=== PATIENT | male | born 1950 | race Caucasian/White ===

== ENCOUNTER → 2016-07-07 | Outpatient (CLI) | payer MEDICARE, OTHER | END | disposition home or self-care (01) | LOC: RAD.S 07-06 14:58 | DX: K21.9 Gastro-esophageal reflux disease without esophagitis (principal); R11.0 Nausea; I47.9 Paroxysmal tachycardia, unspecified ==

== ENCOUNTER → 2016-07-09 | Outpatient (CLI) | payer MEDICARE, OTHER ==
--- NOTE | ~2016-07-09 | ECH ---
Transthoracic Echocardiography Report (TTE) Demographics Patient Name HALEIGH GASCA Date of Study 07/09/2016 Patient Number [id number] Visit Number [id number] Date of 1950 Room Number Accession Number [id number] Gender Male Age 65 year(s) Referring Junaid Oleary MD Count Room Clerk Nay White Physician RDCS Physician Interpreting Libia Duarte MD Electrophysiology Technologist Physician Supervising Ordering Physician Junaid Oleary MD, MD/P Nurse Stress Administrative Volunteer Conclusions Summary Technically fair exam. The estimated left ventricular ejection fraction is 60%. The aortic root appears mildly dilated. The maximum diameter measures 3.9 cm. No significant valvular abnormalities. Procedure Type of Study TTE procedure:Echo Complete SF. Procedure Date Date: 07/09/2016 Start: 09:38 AM Technical Quality: Fair due to body habitus. Indications:Coronary artery disease and PSVT. Height: 72 inches Weight: 280 pounds BSA: 2.46 m Rhythm: NSR HR: 64 bpm BP: 138/90 mmHg M-Mode/2D Measurements LV Diastolic Dimension: 4.55 cm LV Systolic Dimension: 2.48 cm LV Septum Diastolic: 0.83 cm LV PW Diastolic: 0.86 cm AO Root Dimension: 3.89 cm Cardiac Output: 6.99 l/min LA Dimension: 4.12 cm Cardiac Index: 2.84 l/min*m RV Diastolic Dimension: 4.25 cm LA volume index: 34 ml/m LVOT: 2.27 cm LVOT VTI: 27.01 cm RV Base: 2.9 cm LV Stroke volume: 109.26 ml RV Mid: 2.5 cm LV Stroke volume index: 44.41 ml/m TAPSE: 3.2 cm TDI-S': 12 cm/s Doppler Measurements AV Peak Velocity: 1.3 m/s MV Peak E-Wave: 0.81 m/s AV Peak Gradient: 6.76 mmHg MV Peak A-Wave: 0.6 m/s AV Mean Gradient: 4.13 mmHg MV E/A Ratio: 1.34 LVOT Peak Velocity: 0.99 m/s MV P1/2t: 61.9 msec AV Area (Continuity):3.43 cm MV Deceleration Time: 203.1 msec MV Area (PHT): 3.55 cm PV Peak Velocity: 1 m/s E' Septal Velocity: 0.05 m/s PV Peak Gradient: 3.99 mmHg E' Lateral Velocity: 0.12 m/s A' Septal Velocity: 0.1 m/s A' Lateral Velocity: 0.1 m/s RA Area: 12.59 cm Findings Left Ventricle Normal left ventricle size and function. Diastolic assessment reveals normal relaxation. Right Ventricle Normal right ventricle structure and function. Left Atrium Normal left atrial size. Right Atrium Normal right atrial size. Mitral Valve Normal mitral valve structure and function. No mitral regurgitation by color Doppler. Aortic Valve The aortic valve was not well imaged. Tricuspid Valve Normal tricuspid valve structure and function. Trivial tricuspid regurgitation by color Doppler. Insufficient jet to calculate pulmonary pressures. Pulmonic Valve The pulmonic valve is not well visualized. Trivial pulmonic valve regurgitation by color Doppler. Pericardial Effusion No evidence of pericardial effusion. Miscellaneous The aortic root appears mildly dilated. The maximum diameter measures 3.9 cm. Pleural Effusion No evidence of pleural effusion. Signature
--- NOTE | ~2016-07-09 | CST ---
Cardiac Perfusion Imaging Demographics Patient Name CAMPOS Restrepo Gender Male Patient Number [id number] Race Visit Number [id number] Ethnicity [employer] ID Room Number Accession Number [id number] Height 72 inches Date of 1950 Weight 280 pounds Age 65 year(s) BSA 2.46 m Referring Physician Junaid Oleary MD BMI 37.97 kg/m Interpreting Physician [place] Date of study 07/09/2016 Radiology Vazquez Restrepo MD Supervising MD/MLP Junaid Oleary MD NM Technologist Linda Bro Ordering Physician Junaid Oleary MD Stress Mariann Hernandez aviation safety technician Stress ECG Reading Junaid Oleary MD Nurse Yeimi Kate Physician The procedure was explained in detail to the patient. Risks, complications and alternative treatments were reviewed. Written consent was obtained. Medications Reviewed with Patient prior to Procedure. Procedure Procedure Type: Nuclear Stress Test:Pharmacological, Lexiscan, Cardiac Study SF Procedure Start time: 07/09/2016 09:00 Indications: Paroxysmal Supraventricular Tachycardia, Hyperlipidemia, Hypertension, Tobacco use-prior, Diabetes, Family history of coronary artery disease and Chest tightness. Risk Factors The patient risk factors include:obesity, former tobacco use, hypercholesterolemia, hypertension, family history of premature CAD, insulin treated diabetes mellitus, dyslipidemia and ( years not smokin). Conclusions Summary Perfusion Images: The overall quality of the study is good. Left ventricular cavity is noted to be normal on the stress and rest studies. There is no evidence of abnormal lung activity. The right ventricle is not visualized and cannot be assessed. Stress SPECT images demonstrate homogenous tracer distribution throughout the myocardium. Rest SPECT images demonstrate homogenous tracer distribution throughout the myocardium. Gated SPECT imaging reveals normal myocardial thickening and wall motion. The left ventricular ejection fraction was calculated to be 64%. Impression 1. Normal myocardial perfusion. 2. Normal left ventricular systolic function with an ejection fraction of 64 %. Stress Protocols Resting ECG Normal sinus rhythm. Resting HR:62 bpm Resting BP:136/80 mmHg Pre-stress physical exam: Normal Stress Protocol:Pharmacologic Predicted HR: 155 bpm Test duration: 06:00 min Reason for termination:Infusion complete ECG Findings No ECG changes suggestive of ischemia. Symptoms chest tightness due to lexiscan pharmacologic agent Stress Interpretation ECG portion of stress test is negative for ischemia by diagnostic criteria. Imaging Results Summed scores - Summed stress score: 0 - Summed rest score: 3 - Summed difference score: -3 Stress ejection Ejection fraction:65 % EDV :136 ml ESV :48 ml Stroke volume :88 ml LV mass :153 gr Imaging Protocols Rest Stress Isotope:Tc99m Myoview IV Isotope: Tc99m Myoview IV Isotope dose:10.7 mCi Isotope dose:32.1 mCi Date:07/09/2016 08:00 Date:07/09/2016 09:15 Technique: SPECT Technique: Gated Supine SPECT Supine Scan Time:45-60 minutes post Scan Time:45-60 minutes post injection injection Procedure Medications - Regadenoson (Lexiscan) 0.4 mg IV over 10-15 sec. I.V. 0.4 mg. Medications administered per verbal order and read back to physician prior to administration. Medical History Admission Data Admission date: 07/09/2016 Admission Time: 07:29 Hospital Status: Outpatient. Signatures
== END | disposition home or self-care (01) ==
LOC: CARD 07-06 15:18
DX: I47.9 Paroxysmal tachycardia, unspecified (principal); K21.9 Gastro-esophageal reflux disease without esophagitis; R11.0 Nausea; I51.7 Cardiomegaly; Z53.9 Procedure and treatment not carried out, unspecified reason